=== PATIENT | female | born 1970 | race Native Hawaiian/Other Pacific Islander ===

== ENCOUNTER → 2016-09-15 | Outpatient (CLI) | payer OTHER ==
--- NOTE | 2016-09-15 18:20 | DX ---
Cervical spine, 2 views History: Follow up fusion. Comparison: Cervical spine of June 22, 2016. Findings: ACDF hardware at C5-C6 is stable. There is decreased conspicuity of the C5-C6 joint space, suggesting partial osseous fusion. Hardware is intact without evidence of loosening. Mild straighteni ng of the cervical spine is stable without subluxation. Mild vertebral and uncovertebral spondylosis at C4-C5 and C6-C7 are stable. Moderate degenerative change is noted at the articulation of the odont oid with the anterior arch of C1. Impression: ACDF at C5-C6 with probable increase in anterior osseous fusion.
== END ==
LOC: FIMAGING 12:03
PROVIDERS: ATTEND Neurological Surgery
DX: Z09 Encounter for follow-up examination after completed treatment for conditions other than malignant neoplasm (principal); Z98.1 Arthrodesis status; Z48.02 Encounter for removal of sutures

== ENCOUNTER → 2016-11-10 | Outpatient (CLI) | payer OTHER | LOC: FIMAGING 08:58 | PROVIDERS: ATTEND Specialist | DX: N20.0 Calculus of kidney (principal); N20.1 Calculus of ureter ==

== ENCOUNTER → 2016-11-13 | Outpatient (CLI) | payer OTHER | LOC: FIMAGING 12:32 | PROVIDERS: ATTEND Specialist | DX: N20.0 Calculus of kidney (principal) ==

== ENCOUNTER → 2016-12-25 | Outpatient (CLI) | payer OTHER | LOC: FIMAGING 10:18 | PROVIDERS: ATTEND Specialist | DX: N20.0 Calculus of kidney (principal) ==

== ENCOUNTER → 2016-12-25 | Outpatient (CLI) | payer OTHER | LOC: FIMAGING 10:06 → FLAB 10:06 → EDSTATUS 10:16 | PROVIDERS: ATTEND Physician Assistant | DX: Z98.1 Arthrodesis status (principal); Z09 Encounter for follow-up examination after completed treatment for conditions other than malignant neoplasm ==

== ENCOUNTER → 2016-12-28 | Outpatient (CLI) | payer OTHER | LOC: FIMAGING 12:36 | PROVIDERS: ATTEND Physician Assistant Medical | DX: N20.2 Calculus of kidney with calculus of ureter (principal); Z96.0 Presence of urogenital implants ==

== ENCOUNTER 2017-01-14 06:28 | Observation (INO) | payer OTHER ==
[~2017-01-14 06:28] MED LIST: DEXAMETHASONE 10 MG/ML VIAL IVP ONE; ceFAZolin 2 GM/DEXTROSE 100 ML IV ONE
[2017-01-14] MEDS ORDERED: LIDOCAINE 1% 5 ML SDV ONE (06:47)
[2017-01-14] MEDS ORDERED: LIDO/EPI 1% **Not for Epidural 20 ML MDV ONE (07:54)
[2017-01-14] MEDS ORDERED: PROPOFOL 200 MG/20 ML VIAL ONE ×3 (08:48→10:34)
[2017-01-14] MEDS ORDERED: fentaNYL 250 MCG/5 ML INJ ONE (08:48)
[2017-01-14] MEDS ORDERED: MIDAZOLAM 2 MG/2 ML VIAL ONE (09:02)
[2017-01-14] MEDS ORDERED: ONDANSETRON 4 MG/2 ML VIAL ONE ×2 (09:08)
[2017-01-14] MEDS ORDERED: SUCCINYLCHOLINE CHLORIDE*ANESTHESIA ONLY*200 MG/10 ML SYR IVP ONE (09:08)
[2017-01-14] MEDS ORDERED: LIDOCAINE 2% 5 ML SDV ONE (09:08)
[2017-01-14] MEDS ORDERED: ESMOLOL HCL 100 MG/10 ML VIAL IV ONE (09:35)
[2017-01-14] MEDS ORDERED: METOCLOPRAMIDE 10 MG/2 ML VIAL ONE (09:49)
[2017-01-14] MEDS ORDERED: METOPROLOL TARTRATE 5 MG/5 ML INJ ONE (11:13)
[2017-01-14] MEDS ORDERED: fentaNYL 100 MCG/2 ML INJ ONE ×2 (11:15→12:15)
[2017-01-14] MEDS ORDERED: ONDANSETRON 4 MG/2 ML VIAL IVP PRN (12:03)
[2017-01-14] MEDS ORDERED: HYDROmorphONE/DILAUDID 2 MG/ML INJ ONE (12:15)
[2017-01-14 12:53] LABS: IONIZED CALCIUM 1.35 MMOL/L (1.12-1.30)
[2017-01-14] MEDS: HYDROCODONE/APAP 5/325 TAB PO PRN (15:14)
[2017-01-14] MEDS: ceFAZolin 2 GM/DEXTROSE 100 ML IV SCH ×2 (16:54→23:52)
--- NOTE | 2017-01-14 18:32 | GOP ---
[f rep st] OPERATIVE REPORT DATE OF OPERATION: 01/14/2017 SURGEON: Karlos Lechuga MD [employer] SUPERVISOR: Jason Ceron MD. ANESTHESIA: General, Leonardo Cespedes MD PREOPERATIVE DIAGNOSIS: Hyperparathyroidism POSTOPERATIVE DIAGNOSIS: Hyperparathyroidism secondary to left inferior parathyroid adenoma. PROCEDURE PERFORMED: Parathyroid exploration with removal of left inferior parathyroid adenoma. FINDINGS: A sestamibi scan performed on the morning of surgery showed a left inferior parathyroid adenoma. Intraoperatively the patient was found to have a very large left inferior parathyroid adenoma below and lateral to the left lobe of the thyroid gland. Measurement on the table was 3 cm x 2 cm x 1 cm thick. Her parathyroid hormone dropped to 17.5, this was 20 minutes after removal of the tumor. SPECIMENS: 1. Left inferior parathyroid adenoma. 1. Left superior parathyroid gland, found to be normal with normal background level radiation when measured with the gamma probe. 2. ESTIMATED BLOOD LOSS: Less than 50 mL. INDICATIONS: The patient is a 46-year-old woman with hypercalcemia and renal stones. She was found to have an elevated parathyroid hormone level of 149. DESCRIPTION OF PROCEDURE: Patient was taken the operating room, positively identified placed on monitors, and general endotracheal anesthesia was induced. The neck was prepped and draped in normal sterile fashion. Incision was made along an anterior neck skin crease. Dissection was carried down through the platysma. Using a vertical dissection at this point, the strap muscles were divided in the midline. The thyroid isthmus was identified. We then used blunt dissection and extended down over the left lobe of the thyroid gland enlarging the space between the thyroid gland and the lateral tissues. Rotating along the thyroid capsule, I did not identify a parathyroid adenoma. There was some fullness deep to the fascia laterally behind the carotid artery. This fascia was divided bluntly, and we localized the parathyroid adenoma. It was surprisingly large. It took some time to remove it due to the fact that it was surrounded by a fibrous capsule and care needed to be taken not to inadvertently damage any of the neurovascular tissues. Once the mass was removed, it was placed in front of the gamma probe. The primary tumor had a reading of 1600. The background reading of the thyroid was 500. Background reading of the soft tissues of the neck was 125. Frozen section came back showing hypercellular parathyroid tissue. While the frozen section was being done, I located the superior gland and a small sliver of this was removed. The gamma probe showed it to read at 125, the same as the background surrounding tissue and actually lower than the thyroid gland which was still about 500. At this point, the case was terminated. The wound was irrigated with sterile saline solution and hemostasis was assured. Due to the fact that we had to divide some fascia laterally, I felt it best to place a small suction drain overnight. Therefore, a 10-[place] drain was placed through a separate stab incision, secured with a drain stitch. The wound was then closed with interrupted 3-0 Vicryl suture to reapproximate the strap muscles followed by 4-0 Monocryl to the subcutaneous tissues and interrupted 5-0 Prolene. A pressure dressing was placed and the case was terminated. The anesthetic was discontinued. The patient was taken to postop care in good condition. She tolerated procedure well COMPLICATIONS: None. /[id number]/MODL MTDD
[2017-01-14 18:56] LABS: IONIZED CALCIUM 1.22 MMOL/L (1.12-1.30)
[2017-01-14] MEDS ORDERED: KETOROLAC 30 MG/1 ML SDV IVP PRN (19:18)
--- NOTE | 2017-01-14 19:25 | SOAPPROG ---
TAD Progress Note Assessment/Plan: Assessment: pt has pain 02/13. Will try toradol IV, she states that she routinely gets tis when she has had ER visits for renal stone pain. Her ionized calcium is normal. Plan:Toradol ordered. Calcium will be drawn in the morning. I expect that she will go home tomorrow. We reviewed the signs of low calcium, should she manifest "hungry bone syndrome " 01/14/17 19:22 Subjective: Pt complains of pain. Voice is normal no sxs of low calcium Objective: Vital Signs Temp Pulse Resp BP Pulse Ox 36.7 C 95 18 133/83 H 98 01/14/17 16:30 01/14/17 16:30 01/14/17 16:30 01/14/17 16:30 01/14/17 16:30 01/13/17 01/14/17 01/15/17 05:59 05:59 05:59 Intake Total 1700 Output Total 920 Balance 780 Ionized Calcium 1.22 MMOL/L (1.12-1.30) 01/14/17 18:20 PTH Intact 17.5 pg/ml (10.8-79.4) 01/14/17 11:20 Pt looks good Neck flat, no sxs of low CA. ICD10 Worksheet Patient Problems: Problems Problem Status Onset Arthrodesis status Acute Cervical radiculitis Acute Cervical spinal stenosis Acute Cervicalgia Acute
[2017-01-14 22:27] LABS: IONIZED CALCIUM 1.21 MMOL/L (1.12-1.30)
[2017-01-14] MEDS ORDERED: CALCIUM GLUCONATE 2 GM in D5W 50 ML IV ONE (22:30)
[2017-01-14] MEDS: CALCIUM CARBONATE 500 MG TAB PO SCH ×2 (22:42→22:55)
[2017-01-14] MEDS: MAGNESIUM OXIDE 400 MG TAB PO SCH (23:34)
[2017-01-15 04:30] LABS: IONIZED CALCIUM 1.34 MMOL/L (1.12-1.30)
[2017-01-15 04:47] LABS: MAGNESIUM 1.9 mg/dL (1.6-2.3)
[2017-01-15] MEDS: CALCIUM CARBONATE 500 MG TAB PO SCH ×2 (05:07→09:06)
[2017-01-15] MEDS: MAGNESIUM OXIDE 400 MG TAB PO SCH (05:32)
[2017-01-15] MEDS ORDERED: BACITRACIN OINTMENT 1 PACKET TP ONE (07:53)
[2017-01-15 07:58] VITALS: RESP 18
[2017-01-15 08:02] VITALS: BP 122/82; PULSE 80; TEMP 99.6; O2SAT 93
[2017-01-15] MEDS: ceFAZolin 2 GM/DEXTROSE 100 ML IV SCH (08:11)
--- NOTE | 2017-01-15 08:45 | SOAPPROG ---
SOAP Progress Note Assessment/Plan: Pt s/p parathyroidectomy for left adenoma. Doing well. Moderate pain. No hoarseness Dressing removed, drain removed. Tegaderm dressing applied. Plan: Pt doing well. Calciums are high. she can take less calcium. Discussed post op care. F/u next week for suture removal. 01/15/17 08:43 Objective: Vital Signs Temp Pulse Resp BP Pulse Ox 37.6 C 80 18 122/82 H 93 01/15/17 07:57 01/15/17 07:57 01/15/17 07:57 01/15/17 07:57 01/15/17 07:57 01/14/17 01/15/17 01/16/17 05:59 05:59 05:59 Intake Total 2100 Output Total 1365 Balance 735 ICD10 Worksheet Patient Problems: Problems Problem Status Onset Arthrodesis status Acute Cervical radiculitis Acute Cervical spinal stenosis Acute Cervicalgia Acute
[2017-01-15] MEDS: HYDROCODONE/APAP 5/325 TAB PO PRN (09:01)
== END 2017-01-15 12:10 | disposition home or self-care (01) ==
LOC: F3E 06:28
PROVIDERS: ADMIT Otolaryngology; ATTEND Otolaryngology
PROC: 0GTM0ZZ Resection of Left Superior Parathyroid Gland, Open Approach (ICD-10-PCS; principal; 2017-01-14 08:00)
PROC: 0GTP0ZZ Resection of Left Inferior Parathyroid Gland, Open Approach (ICD-10-PCS; principal; 2017-01-14 08:00)
DX: D35.1 Benign neoplasm of parathyroid gland (principal); E83.52 Hypercalcemia; Z98.1 Arthrodesis status; Z87.442 Personal history of urinary calculi
CPT/HCPCS: 60500; 78070; A9500; G0378; J0330; J0610; J0690; J1170; J1885; J2250; J2405; J2704; J2765; J3010

== ENCOUNTER → 2017-01-25 | Outpatient (CLI) | payer OTHER | LOC: FIMAGING 10:32 | PROVIDERS: ATTEND Physician Assistant | DX: Z98.1 Arthrodesis status (principal) ==

== ENCOUNTER → 2017-06-10 | Outpatient (CLI) | payer OTHER | LOC: FIMAGING 11:15 | PROVIDERS: ATTEND Physician Assistant | DX: Z12.31 Encounter for screening mammogram for malignant neoplasm of breast (principal) | CPT/HCPCS: G0202 ==

== ENCOUNTER → 2017-06-17 | Outpatient (CLI) | payer OTHER | LOC: FIMAGING 10:00 | PROVIDERS: ATTEND Physician Assistant | DX: N63.10 Unspecified lump in the right breast, unspecified quadrant (principal) ==

== ENCOUNTER → 2018-01-04 | Outpatient (CLI) | payer OTHER ==
[~2018-01-04] MED LIST changes: -DEXAMETHASONE 10 MG/ML VIAL IVP ONE; +NITROGLYCERIN 1,500 MCG/15 ML VIAL MISC ONE; -ceFAZolin 2 GM/DEXTROSE 100 ML IV ONE
== END ==
LOC: FIMAGING 12:20 → EDSTATUS 12:21
PROVIDERS: ATTEND Physician Assistant
DX: M48.02 Spinal stenosis, cervical region (principal); M50.122 Cervical disc disorder at C5-C6 level with radiculopathy; M47.892 Other spondylosis, cervical region

== ENCOUNTER → 2018-02-01 | Outpatient (CLI) | payer OTHER | LOC: FIMAGING 09:37 | PROVIDERS: ATTEND Physician Assistant | DX: M48.02 Spinal stenosis, cervical region (principal); M25.78 Osteophyte, vertebrae; Z98.1 Arthrodesis status ==

== ENCOUNTER → 2018-07-05 | Outpatient (CLI) | payer OTHER | LOC: FIMAGING 10:12 | PROVIDERS: ATTEND Physician Assistant | DX: Z12.31 Encounter for screening mammogram for malignant neoplasm of breast (principal); Z13.820 Encounter for screening for osteoporosis; Z79.899 Other long term (current) drug therapy ==